=== PATIENT | male | born 1960 | race Asian ===

== ENCOUNTER 2022-08-13 19:16 | Inpatient (IN) | payer OTHER ==
[~2022-08-13] VITALS: Ht 175.3 cm; Wt 81.2 kg
[2022-08-13 19:27] VITALS: BP_SYST 159
--- NOTE | 2022-08-13 19:37 | NUR ---
Patient presents to ED from home with c/o chest wall pain x2 months worsening when coughing. Patient reports cold like symptoms x 2 months. Patient A/Ox4, VSS, ambulatory, resp even and unlabored. Patient accompanied by daughter. ER MD Ndiaye made aware.
--- NOTE | 2022-08-13 20:06 | NUR ---
Patient placed in room and connected to monitor. Report given to DYLLAN Lemons to assume care of patient. Nad noted at this time.
--- NOTE | 2022-08-13 20:22 | NUR ---
ER at bedside examining patient.
[2022-08-13 21:01] LABS: BASOPHILS # (AUTO) 0.1 K/uL (0.0-0.2); BASOPHILS % (AUTO) 0.9 % (0.0-2.0); EOSINOPHILS # (AUTO) 0.9 K/uL (0.0-0.4); EOSINOPHILS % (AUTO) 8.6 % (0.0-4.0); HEMATOCRIT 41.9 % (36-54); HEMOGLOBIN 14.1 g/dL (14.0-18.0); LYMPHOCYTES # (AUTO) 1.8 K/uL (1.0-5.5); LYMPHOCYTES % (AUTO) 18.3 % (20.5-51.5); MEAN CORPUSCULAR HEMOGLOBIN 31 pg (27-31); MEAN CORPUSCULAR HGB CONC 34 % (32-36); MEAN CORPUSCULAR VOLUME 91 fL (79.0-98.0); MONOCYTES # (AUTO) 1.3 K/uL (0.0-1.0); MONOCYTES % (AUTO) 12.5 % (1.7-9.3); NEUTROPHILS % (AUTO) 59.7 % (40.0-70.0); PLATELET COUNT (AUTO) 256 K/uL (130-430); RED BLOOD CELL COUNT(AUTO) 4.58 MIL/uL (4.2-6.2); RED CELL DISTRIBUTION WIDTH 13.3 % (9.0-15.0)
[2022-08-13] MEDS ORDERED: MORPHINE 4 MG INJ. 4 MG/ML VIAL ONE (21:01)
[2022-08-13] MEDS ORDERED: NITROGLYCERIN 1 INCH (GM) OINT. ONE (21:03)
[2022-08-13 21:23] LABS: ANION GAP 8 (5-15); CALCIUM 9.1 mg/dL (8.4-11.0); CHLORIDE 102 mmol/L (98-107); CREATININE 1.04 mg/dL (0.55-1.30); GLUCOSE 115 mg/dL (70-99); UREA NITROGEN, BLOOD 16 mg/dL (8-21)
[2022-08-13 21:28] LABS: GFR AFRICAN AMERICAN 94 mL/min (>90)
[2022-08-13 21:35] LABS: ALANINE AMINOTRANSFERASE 25 U/L (12-78); ALBUMIN 3.1 g/dL (3.4-4.8); ASPARTATE AMINOTRANSFERASE 27 U/L (10-37); TOTAL BILIRUBIN 0.4 mg/dL (0.0-1.0)
[2022-08-13] MEDS ORDERED: iohexoL 350 mgI/mL, 100 ML INFUS..BTL IV ONE (22:53)
--- NOTE | 2022-08-13 23:00 | NUR ---
PT IS HERE QITH . PT IS ROOM AIR, AMBULRORY
[2022-08-13] MEDS ORDERED: AZITHROMYCIN 500 MG in NS 250 ML IV ONE (23:15)
[2022-08-13] MEDS ORDERED: MORPHINE 4 MG INJ. 4 MG/ML VIAL IVP ONE (23:30)
[2022-08-13] MEDS ORDERED: NITROGLYCERIN 1 INCH (GM) OINT. TP ONE (23:30)
[2022-08-14] MEDS ORDERED: cefTRIAXone 2 GM VIAL ONE (00:12)
[2022-08-14] MEDS ORDERED: AZITHROMYCIN 500 MG/VIAL (ZITHROMAX) IV ONE (00:13)
--- NOTE | 2022-08-14 00:57 | NUR ---
Admit bed requested Patient will be admitted to care of . Admitted to TELE unit. Diagnosis PNA Inpatient (Yes or No) YES Observation (Yes or No) NO Orientation concerns or request close to nursing station (Yes or No) NO Covid Status PENDING On vent or bipap NO Isolation requirements NO Needs a sitter NO From Home (Yes or if No enter name of facility) YES Requires Dialysis (Yes or No) NO Med Rec Completed (Yes of No) YES
[2022-08-14] MEDS ORDERED: CIPR500T5 PO (01:04)
[2022-08-14] MEDS ORDERED: NAPR-690 PO (01:04)
[2022-08-14] MEDS ORDERED: METO-442 PO (01:04)
[2022-08-14] MEDS ORDERED: TRAM50TA2 PO (01:04)
[2022-08-14] MEDS ORDERED: AMLO5TAB4 PO (01:04)
[2022-08-14] MEDS ORDERED: LIP20 PO (01:04)
[2022-08-14] MEDS ORDERED: HYDR25TA4 PO (01:04)
[2022-08-14] MEDS ORDERED: ACETAMINOPHEN 325 MG TABLET PO ONE (05:15)
[2022-08-14] MEDS ORDERED: ACETAMINOPHEN 325 MG TABLET ONE (05:19)
--- NOTE | 2022-08-14 05:41 | NUR ---
pt is complaing about the headache. informed the
--- NOTE | 2022-08-14 07:30 | NUR ---
Report recieved from DYLLAN Lemons Pt to ER with a chief complaint of having pleuritic chest pain, cough and congestion for the past 24 hours. Patient is also short of breath. He has no fever or chills. Patient has a history of hypertension. He has no abdominal pain, nausea, vomiting or diarrhea. Patient has no palpitations. Pt denies headache, requests breakfast tray.
[2022-08-14 07:47] LABS: BASOPHILS # (AUTO) 0.1 K/uL (0.0-0.2); BASOPHILS % (AUTO) 0.8 % (0.0-2.0); EOSINOPHILS # (AUTO) 0.8 K/uL (0.0-0.4); EOSINOPHILS % (AUTO) 7.3 % (0.0-4.0); HEMOGLOBIN 13.7 g/dL (14.0-18.0); LYMPHOCYTES # (AUTO) 1.3 K/uL (1.0-5.5); LYMPHOCYTES % (AUTO) 12.9 % (20.5-51.5); MEAN CORPUSCULAR HEMOGLOBIN 31 pg (27-31); MEAN CORPUSCULAR HGB CONC 34 % (32-36); MEAN CORPUSCULAR VOLUME 91 fL (79.0-98.0); MONOCYTES % (AUTO) 9.4 % (1.7-9.3); NEUTROPHILS # (AUTO) 7.2 K/uL (1.8-7.7); NEUTROPHILS % (AUTO) 69.6 % (40.0-70.0); PLATELET COUNT (AUTO) 254 K/uL (130-430); RED CELL DISTRIBUTION WIDTH 13.2 % (9.0-15.0); WHITE BLOOD COUNT (AUTO) 10.3 K/uL (4.8-10.8)
[2022-08-14 08:00] LABS: CALCIUM 8.9 mg/dL (8.4-11.0)
[2022-08-14 08:07] LABS: ALBUMIN 2.9 g/dL (3.4-4.8); TOTAL BILIRUBIN 0.4 mg/dL (0.0-1.0)
--- NOTE | 2022-08-14 08:30 | NUR ---
Pt served cardiac tray, ate 100%, no complaints at this time. Pt denies headache.
--- NOTE | 2022-08-14 11:33 | NUR ---
ALL ADMISSION CONSULTS PAGED ORDERED BY DR. DURAND
--- NOTE | 2022-08-14 12:42 | NUR ---
Pt sitting up bedside eating lunch, requests cough suppressant, will contact admission doctor.
[2022-08-14] MEDS ORDERED: PROMETHAZINE HCL/CODEINE 6.25-10 mg/5 mL UDC PO PRN (15:00)
--- NOTE | 2022-08-14 15:00 | NUR ---
Pt denies chest pain, pt complains of cough and headache. Notified admitting MD.
[2022-08-14] MEDS: guaiFENesin/DEXTROMETHORPHAN 10 ML UDC PO PRN (16:40)
[2022-08-14] MEDS ORDERED: guaiFENesin 200 MG/CODEINE 20 MG/ 10 ML UDC ONE ×2 (16:40→22:04)
[2022-08-14] MEDS: ACETAMINOPHEN 325 MG TABLET PO PRN (16:41)
--- NOTE | 2022-08-14 21:00 | NUR ---
Pt resting without complaint, request water, provided. pt is sitting up with HOB upright.
[2022-08-14] MEDS: cefTRIAXone 1 GM IVPB PREMIX 50 ML IV SCH (22:00)
[2022-08-14] MEDS ORDERED: AZITHROMYCIN 500 MG in NS 250 ML IV SCH (22:00)
[2022-08-14] MEDS ORDERED: cefTRIAXone 1 GM IVPB PREMIX 50 ML IV SCH (22:00)
--- NOTE | 2022-08-14 22:00 | NUR ---
Patient will be admitted to care of [facility]. Admitted to Tele unit. Complete and up to date summary report printed. SBAR report to be given at bedside with opportunity for questions.
--- NOTE | 2022-08-14 22:45 | NUR ---
ADMISSION: The patient, PEE RONQUILLO, 62 y/o, M admitted by LAYNE DURAND MD, arrived on the [facility] unit bed #123A from the ER at 2245 with the diagnosis of PNEUMONIA. Admission processes initiated, is bedside.
[2022-08-14] MEDS: AZITHROMYCIN 500 MG in NS 250 ML IV SCH (23:20)
[2022-08-14 23:26] VITALS: BP_SYST 139
[2022-08-15 04:00] VITALS: BP_SYST 140
[2022-08-15] MEDS: guaiFENesin/DEXTROMETHORPHAN 10 ML UDC PO PRN ×2 (07:50→15:04)
[2022-08-15 08:00] VITALS: BP_SYST 150
--- NOTE | 2022-08-15 08:07 | NUR ---
RECEIVED REPORT ON PATIENT FROM DYLLAN BUSTILLOS, ASSUMED CARE, AND STARTED ASSESSMENT.
[2022-08-15 12:00] VITALS: BP_SYST 140
--- NOTE | 2022-08-15 15:00 | NUR ---
PATIENT REQUESTED COUGH SYRUP. MEDICATED PATIENT WITH COUGH SYRUP PER MD ORDERS,
[2022-08-15 16:00] VITALS: BP_SYST 132
--- NOTE | 2022-08-15 19:14 | NUR ---
REPORT GIVEN TO DYLLAN BUSTILLOS, AND CARE WAS TURNED OVER TO HER.
--- NOTE | 2022-08-15 23:15 | NUR ---
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
[2022-08-16] MEDS: cefTRIAXone 1 GM IVPB PREMIX 50 ML IV SCH ×2 (00:25→21:21)
[2022-08-16] MEDS: guaiFENesin/DEXTROMETHORPHAN 10 ML UDC PO PRN ×4 (00:26→21:17)
[2022-08-16] MEDS: ACETAMINOPHEN 325 MG TABLET PO PRN ×4 (00:27→21:19)
[2022-08-16] MEDS: AZITHROMYCIN 500 MG in NS 250 ML IV SCH ×2 (00:29→21:22)
[2022-08-16 07:06] LABS: FREE PSA 0.3 ng/mL
--- NOTE | 2022-08-16 07:41 | NUR ---
OPENING NOTES: RECEIVED BEDSIDE SBAR FROM PM SHIFT NURSE PATIENT STABLE NO DISTRESS NEEDS BEING KNOWN, BED LOCKED AND AT LOW POSITION CALL LIGHT IN REACH WILL CONT TO MONITOR PATIENT PER ORDERS.
[2022-08-16 12:30] VITALS: BP_SYST 133
--- NOTE | 2022-08-16 12:30 | NUR ---
ROUNDS: PATIENT REMAINS STABLE RESTING WELL IN BED ALL NEEDS BEING KNOWN, BED AT LOW POSITION WILL CONT TO MONITOR PATIENT.
[2022-08-16 13:58] VITALS: BP_SYST 133
--- NOTE | 2022-08-16 15:27 | NUR ---
SPOKE WITH DR. FREEMAN WANTS TO KEEP PATIENT ANOTHER NIGHT, NEW ORDERS: MRI SPINE 24 HOUR UA. PATIENT AWARE, FAMILY AT BEDSIDE.
[2022-08-16] MEDS ORDERED: ZIT250 PO (15:34)
--- NOTE | 2022-08-16 18:15 | NUR ---
Dietitian Recommendations * Continue Cardiac diet * Ordered: Ensure Enlive ONS BID (ONS yields 700kcals, 40g PRO) * Recommend home supplements: daily MVI, VIT D Please refer to nutrition f/u for details, thanks! CC, MPH, RDN
--- NOTE | 2022-08-16 18:26 | NUR ---
CLOSING NOTES: PATIENT REMAINS STABLE NO DISTRESS, BED AT LOCKED AND LOW POSITION CALL LIGHT IN REACH ALL NEEDS MEET TODAY. WILL GIVE PM SHIFT NURSE BEDSIDE SBAR.
[2022-08-16 18:33] VITALS: BP_SYST 142
[2022-08-16 20:00] VITALS: BP_SYST 144
--- NOTE | 2022-08-16 21:00 | NUR ---
PATIENT C/O COUGHING AND LOWER RIGHT BACK PAIN THAT INCREASES WITH COUGHING, REQUESTING ROBITUSSIN AND COUGH SYRUP, DENIES CHEST PAIN, NO SOB NOTED, PATIENT GIVEN BEDTIME SNACK
[2022-08-17] VITALS (8 sets, daily range): BP systolic 121–141
--- NOTE | 2022-08-17 05:29 | NUR ---
NO DISTRESS NOTED, PATIENT SLEPT WELL, GREGOR IV ABX, NO SOB NOTED, DECREASED COUGHING NOTED AFTER PRN COUGH SYRUP, LAST BM 08/16, NO DIARRHEA
[2022-08-17 07:43] LABS: CALCIUM 8.6 mg/dL (8.4-11.0); CREATININE 0.94 mg/dL (0.55-1.30)
[2022-08-17 07:48] LABS: BASOPHILS # (AUTO) 0.1 K/uL (0.0-0.2); BASOPHILS % (AUTO) 1.2 % (0.0-2.0); EOSINOPHILS # (AUTO) 0.7 K/uL (0.0-0.4); EOSINOPHILS % (AUTO) 6.9 % (0.0-4.0); HEMATOCRIT 42.5 % (36-54); HEMOGLOBIN 14.4 g/dL (14.0-18.0); LYMPHOCYTES # (AUTO) 1.6 K/uL (1.0-5.5); LYMPHOCYTES % (AUTO) 15.1 % (20.5-51.5); MEAN CORPUSCULAR HEMOGLOBIN 31 pg (27-31); MEAN CORPUSCULAR HGB CONC 34 % (32-36); MEAN CORPUSCULAR VOLUME 92 fL (79.0-98.0); MONOCYTES % (AUTO) 9.1 % (1.7-9.3); NEUTROPHILS # (AUTO) 7.2 K/uL (1.8-7.7); NEUTROPHILS % (AUTO) 67.7 % (40.0-70.0); PLATELET COUNT (AUTO) 277 K/uL (130-430); RED BLOOD CELL COUNT(AUTO) 4.65 MIL/uL (4.2-6.2); RED CELL DISTRIBUTION WIDTH 13.2 % (9.0-15.0); WHITE BLOOD COUNT (AUTO) 10.6 K/uL (4.8-10.8)
--- NOTE | 2022-08-17 08:14 | NUR ---
Patient received awake and alert, able to communicate needs. on tele. no edema noted. patient received on room air, tolerating well. Continent gi/gu. ambulatory without assist. patient able to reposition self. iv patent.
[2022-08-17] MEDS: guaiFENesin/DEXTROMETHORPHAN 10 ML UDC PO PRN ×2 (09:01→15:54)
[2022-08-17] MEDS: ACETAMINOPHEN 325 MG TABLET PO PRN ×2 (09:01→15:55)
--- NOTE | 2022-08-17 15:13 | NUR ---
DR DURAND ROUNDED TO PATIENT EXPLAINED WE ARE WAITING FOR ONCOLOGIST TO ARRANGE FOR BONE BIOPSY
--- NOTE | 2022-08-17 18:43 | NUR ---
Patient remains on room air, bed in lowest setting. call light within reach. linens were changed. family at bedside
--- NOTE | 2022-08-17 20:00 | NUR ---
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
--- NOTE | 2022-08-17 21:45 | NUR ---
Dr Sandoval paged and obtained order for albuterol neb treatments, patient informed, RT paged and informed around [phone]
--- NOTE | 2022-08-18 02:39 | NUR ---
patient sleeping, no distress noted, comfort maintained, no coughing noted at this time
[2022-08-18] MEDS: ALBUTEROL SULFATE 0.083% 2.5 MG/3 ML VIAL.NEB INH PRN ×2 (03:56→10:32)
[2022-08-18] MEDS: guaiFENesin/DEXTROMETHORPHAN 10 ML UDC PO PRN ×2 (04:02→15:30)
[2022-08-18] MEDS: ACETAMINOPHEN 325 MG TABLET PO PRN ×2 (04:03→10:29)
--- NOTE | 2022-08-18 04:45 | NUR ---
patient requested snack, tolerated well, no distress noted, wilber nebulizer treatments, request tylenol and robitussin, productive coughing of clear phlegm after neb tx
[2022-08-18 07:07] LABS: IMMUNOGLOBULIN G, SERUM 1424 mg/dL (603-1613); IMMUNOGLOBULIN M, SERUM 38 mg/dL (20-172)
[2022-08-18 08:24] VITALS: BP_SYST 146
--- NOTE | 2022-08-18 08:25 | NUR ---
OPENING NOTES: Pt. standing up by bedside. A/O x4. No s/s of distress. Breathing even and unlabored. No pain reported. Pt. signed consent form biopsy later today. Consent placed in chart. Remade his bed per pt request. All needs met at this time, safety checks made and call light within reach.
--- NOTE | 2022-08-18 10:02 | NUR ---
PATIENT SPOKE WITH MD Patient spoke with Dr Lovell and states he was told he would not be able to receive the bone marrow biopsy today. Patient states he wishes to stay and receive the test in hospital rather than schedule outpatient. Paged Dr Lovell for clarification.
--- NOTE | 2022-08-18 11:37 | NUR ---
Leland PALOMO. Pagevalentin Lovell second time regarding pt discharge, appt for biopsy and to schedule follow up appt.
[2022-08-18 12:06] LABS: A/G RATIO 0.7 (0.7-1.7); ALBUMIN 2.9 g/dL (2.9-4.4); ALPHA-1-GLOBULIN 0.3 g/dL (0.0-0.4); ALPHA-2-GLOBULIN 1.1 g/dL (0.4-1.0); BETA GLOBULIN 1.3 g/dL (0.7-1.3); GAMMA GLOBULIN 1.3 g/dL (0.4-1.8); GLOBULIN, TOTAL 4.1 g/dL (2.2-3.9); M-SPIKE 0.7 g/dL (Not Observed)
[2022-08-18 13:07] LABS: A/G RATIO 0.7 (0.7-1.7); ALBUMIN 2.8 g/dL (2.9-4.4); ALPHA-1-GLOBULIN 0.4 g/dL (0.0-0.4); ALPHA-2-GLOBULIN 1.2 g/dL (0.4-1.0); BETA GLOBULIN 1.3 g/dL (0.7-1.3); GAMMA GLOBULIN 1.3 g/dL (0.4-1.8); GLOBULIN, TOTAL 4.1 g/dL (2.2-3.9); M-SPIKE Not Observed g/dL (Not Observed)
--- NOTE | 2022-08-18 13:33 | NUR ---
PUT ANOTHER CALL TO DR FREEMAN, ONCO/ARASELI RE: CLEARANCE FOR DISCHARGE AND APPT FOR BIOPSY IN MD'S OFFICE. SPOKE TO ALBINA.
[2022-08-18 13:34] VITALS: BP_SYST 134
--- NOTE | 2022-08-18 13:59 | NUR ---
SPOKE WITH MD Spoke with Dr Lovell who cleared patient for discharge. Patient instructed to call office for follow up appointment and biopsy.
[2022-08-18 14:11] VITALS: BP_SYST 134
--- NOTE | 2022-08-18 15:46 | NUR ---
FOLLOW UP APPOINTMENT Patient has a follow up appointment with Dr Lovell on 09/03/22 at his office. Family is aware of follow up instructions for discharge.
--- NOTE | 2022-08-18 15:50 | NUR ---
D/C Patient Patient given medication reconciliation form and D/C instructions. Exit Care provided. Patient verbalized understanding. MD discussed with patient the results and treatment provided. Ambulatory with steady gait for discharge to home. Patient in stable condition, ID band removed. IV catheter removed, intact and dressing applied, no active bleeding. Patient educated on pain management. Patient scheduled for follow up appointment with Dr Lovell on 09/03/22. All belongings sent with patient.
== END 2022-08-18 15:40 | disposition home or self-care (01) | DRG 194 ==
LOC: SED 19:16 → STU 08-14 00:53 → SMU 08-17 13:37
PROVIDERS: ADMIT Internal Medicine; ATTEND Internal Medicine
DX: J18.9 Pneumonia, unspecified organism (principal); I12.0 Hypertensive chronic kidney disease with stage 5 chronic kidney disease or end stage renal disease; N18.5 Chronic kidney disease, stage 5; J20.9 Acute bronchitis, unspecified; K80.20 Calculus of gallbladder without cholecystitis without obstruction; E11.22 Type 2 diabetes mellitus with diabetic chronic kidney disease; Z20.822 Contact with and (suspected) exposure to COVID-19; M89.9 Disorder of bone, unspecified; Z79.899 Other long term (current) drug therapy
CPT/HCPCS: 36415; 36600; 71045; 71275; 72125-TC; 72128; 72131; 76376; 77075; 80048; 80053; 82378; 82784; 82803-TC; 83605; 83880; 84153; 84155; 84165; 84484; 85025; 85379; 87040; 93005; 93970; 94640; 94760; 96365; 96375; 99285; G0378; J0456; J0696; J2270; J7050; J7613; Q9967